=== PATIENT | male | born 1945 | race Caucasian/White ===

== ENCOUNTER → 2019-09-25 14:01 | Outpatient (CLI) | payer MEDICARE ==
--- NOTE | ~2019-09-25 | EC ---
PATIENT:BOUCHRA SOUSA DATE OF SERVICE: 09/25/19 SEX: M MEDICAL RECORD: [id number] DATE OF : 45 [facility] AGE OF PATIENT: 74 ADMISSION DATE: 09/25/19 REFERRING PHYSICIAN: INTERPRETING PHYSICIAN: TRACI SCHWARTZ MD ECHOCARDIOGRAM REPORT ECHO CHARGES 4 ECHO COMPLETE Date: 09/25/19 CLINICAL DIAGNOSIS: HEART MURMUR/DYPSNEA ECHOCARDIOGRAPHIC MEASUREMENTS (adult normal given) AC root (d.<3.7cm) 3.3 cm LV Septum d (<1.2 cm> 1.4 cm Valve Excursion 1.78 cm LV Septum (systole) 1.8 cm Left Atria (s.<4.0cm> 4.3 cm LVPW d(<1.2cm) 1.7 cm RV (d.<2.3cm) 5.2 cm LVPW (sytole) 1.8 cm LV diastole(<5.6CM) 6.0 cm MV E-F(>70mm/sec) cm LV systole 3.5 cm LVOT Diameter 2.0 cm MV exc.(>10mm) 1.8 cm Est.ejection fraction (50-75%) % DOPPLER: LVIT cm/sec A 114.0cm/sec E 76.0 cm/sec LA cm/sec RVSP 30 mmHg LVOT 127 cm/sec AOP1/2T m/s Asc. Ao 452 cm/sec RVOT 85 cm/sec RA cm/sec PA 135 cm/sec AV Gradient Peak 81.87mmHg AV Mean 45.08mmHg AV Area 0.9 cm MV Gradient Peak 5.30 mmHg MV Mean 2.23 mmHg MV Area cm COMMENTS: Director Of Strategic Initiatives: 2 ANGELA GOMEZ Middleware Solutions Architect: 3 Dr. Cabezas TAPE# PACS Pericardial Effusion N DATE OF SERVICE: Adequate 2D echo, color flow, spectral Doppler, and M-mode. LVH is present. LV internal dimensions are normal. Wall motion is normal. EF is greater than or equal to 55%. Aortic valve is calcified with restriction of leaflet motion. Peak gradient of 80 mmHg putting this in severe range. Left atrium is mildly dilated at 4.3 cm. Mitral valve shows no prolapse. Mild MR. Right-sided chambers are grossly normal. Mild TR. ECHOCARDIOGRAM REPORT [id number] BOUCHRA SOUSA TRANSINT:[id number] Voice Confirmation ID: [id number] DOCUMENT ID: [id number] TRACI SCHWARTZ MD CC: [id number] DICTATION DATE: 09/25/19 150 HEMODIALYSIS RN: 09/25/19 1759 [facility] [address] [id number]
--- NOTE | ~2019-09-25 | ST ---
PATIENT:BOUCHRA SOUSA MEDICAL RECORD: [id number] SEX: M LOCATION:[facility] ORDER #: ADMISSION DATE: 09/25/19 AGE OF PATIENT: 74 REFERRING PHYSICIAN: INTERPRETING PHYSICIAN: TRACI SCHWARTZ MD DATE OF SERVICE: 09/25/2019 PROCEDURE: Treadmill stress test. Exercised for 3 minutes 35 seconds on Kristian protocol. Maximum heart rate 145 beats per minute, greater than 85% maximum predicted. No ECG changes for ischemia. No symptoms of ischemia. Normal blood pressure response to exercise. Fair exercise tolerance. TRANSINT:[id number] Voice Confirmation ID: [id number] DOCUMENT ID: [id number] TRACI SCHWARTZ MD CC: [id number] DICTATION DATE: 09/26/19 1522 BRAKE LINING FINISHER: 09/27/19 0659 [facility] CLI 09/25/[id number] [place] [address]
== END | disposition home or self-care (01) ==
LOC: D.HCCECHO 14:01
PROVIDERS: ATTEND Internal Medicine Interventional Cardiology
DX: R06.09 Other forms of dyspnea (principal); R01.1 Cardiac murmur, unspecified

== ENCOUNTER 2019-12-05 05:59 | Day surgery (SDC) | payer MEDICARE ==
[~2019-12-05] VITALS: Ht 180.3 cm; Wt 113.9 kg
[~2019-12-05 05:59] MED LIST: ACCUPRIL40 MG PO; BAYER CHEWABLE81 MG PO; HYDROCHLOROTH12.5 M1 PO; HYDROCODON-ACE1 EA10 PO; NORVASC10 MG PO; PRAVACHOL40 MG PO; SINGULAIR10 MG PO
[2019-12-05 06:22] LABS: HEMOGLOBIN 15.6 g/dL (13.5-17.5); MCH 30.1 pg (26.0-34.0); MCHC 32.5 g/dL (31.0-37.0); MCV 92.5 fL (80.0-100.0); MEAN PLATELET VOLUME 9.3 fL (7.4-10.4); RBC 5.19 10x6/uL (4.20-6.10); RDW 13.2 % (11.5-14.5); WBC 6.5 10x3/uL (4.8-10.8)
[2019-12-05 06:37] LABS: CALCIUM 8.9 mg/dL (8.5-10.1); CARBON DIOXIDE 28.3 mmol/L (21.0-32.0); CREATININE - SERUM 1.1 mg/dL (0.6-1.3); POTASSIUM - SERUM 4.3 mmol/L (3.5-5.1)
[2019-12-05 07:08] VITALS: BP 146/87; Ht 180.3 cm; Wt 113.9 kg
[2019-12-05] MEDS ORDERED: ADVAIR 250-501 EAC1 INH (07:21)
--- NOTE | 2019-12-05 10:47 | NUR ---
1045-REC'D FROM RR. AWAKE AND ALERT.DENIES PAIN. VSS. REVIEWED DISCHARGE CRITERIA. VERBALIZED UNDERSTANDING. CL IN EASY REACH
--- NOTE | 2019-12-05 10:58 | OP ---
PATIENT NAME: BOUCHRA SOUSA MEDICAL RECORD: [id number] :45 LOCATION:[facility] ADMISSION DATE: SURGEON: LEVI SOLER MD DATE OF OPERATION: 12/05/2019 SURGEON: Levi Soler MD ANESTHESIA: General anesthesia by Willie Bello CRNA DIAGNOSIS: Right hydrocele. PROCEDURE: Right hydrocelectomy, Jaboulay procedure. SPECIMENS: Right hydrocele sac. ESTIMATED BLOOD LOSS: Minimal. CLINICAL HISTORY: This is a 74-year-old male whom I saw last year for a right hydrocele. At that time, it was large, but not causing any pain. In the meantime, it has become larger and now it was causing him quite a bit of discomfort. 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 When I examined him yesterday, there was also a slight left hydrocele. He gave consent for bilateral hydrocelectomy, although initially we had wanted to do just the right hydrocele. I will have to evaluate this at the time of the operation. HE IS ALLERGIC TO CODEINE. He was given ampicillin and sulbactam 3 grams IV tonger to the OR. DESCRIPTION OF PROCEDURE: The patient was given induction of general anesthesia in supine position. He was then prepped and draped. A midline incision was made on the median rhaphe of the scrotum. This extended for about 2.5 cm. There are large veins on the scrotal skin. We had to cauterize these. The dartos fascia was then incised using the Bovie. We then went down to the tunica vaginalis and drained a large quantity of fluid from the hydrocele. The testicle was then everted from the right hemiscrotum. The appendix, testis and appendix epididymis were removed using the Bovie. The excess tunica vaginalis, which constitutes the hydrocele sac was excised. This was done using the Bovie. The 2 flaps were then reapproximated posterior to the cord using running 4-0 Vicryl. Any bleeding that we encountered was immediately cauterized. The patient was aware that a hematoma formation was the biggest risk of the surgery. There was still venous bleeding from the dartos fascia and we meticulously cauterized these bleeding points. The dartos fascia was then reapproximated after we replaced the testicle into the hemiscrotum. The reapproximation of the dartos was done using running 4-0 Vicryl. Finally, the skin was reapproximated using simple interrupted 4-0 Monocryl. The wound was infiltrated with 1% lidocaine containing epinephrine. Fluffs and mesh panties were given. I will see the patient in followup in 2-4 weeks. TRANSINT:[id number] Voice Confirmation ID: [id number] DOCUMENT ID: [id number] OPERATIVE REPORT [id number] BOUCHRA SOUSA, LEVI Paul MD at 1058 CC: [id number] DICTATION DATE: 12/05/19 1027 [facility]: 12/05/19 [id number] [place] [address]
--- NOTE | 2019-12-05 11:18 | NUR ---
FULL LIQUID TRAY TO ROOM. IV PATENT AT KVO. VSS. REPORTS SLIGHT DISCOMFORT FROM SURGERY. 10/07. CL IN EASY REACH
--- NOTE | 2019-12-05 11:49 | NUR ---
1130-AMBULATED TO RESTROOM WITH SLOW STEADY GAIT. ABLE TO VOID WITHOUT COMPLICATIONS. REMOVED IV WITH CATH ITACT,DISPOSED INTO SHARPS.COVERED WITH GUAZE,SECURED WITH MEDIPORE TAPE.
--- NOTE | 2019-12-05 11:50 | NUR ---
1145-PT DRESSED. REVIEWED POST OPERATIVE INSTRUCTIONS AND FOLLOW UP APPOINTMENT. VERBALIZED UNDERSTANDING. ESCORTED OUT VIA W/C WITH SON AWAITING TO DRIVE HOME. VSS. DENIES PAIN.
== END 2019-12-05 11:45 | disposition home or self-care (01) ==
LOC: D.PAN 05:59 → D.OPS 09:00 → D.PAN 09:00
PROVIDERS: Anesthesiology; ATTEND Urology
DX: N43.3 Hydrocele, unspecified (principal); I10 Essential (primary) hypertension

== ENCOUNTER → 2020-01-22 12:28 | Outpatient (CLI) | payer MEDICARE ==
[2019-12-05 07:08] VITALS: BMI 35.0
[~2020-01-22 12:28] MED LIST changes: +ADVAIR 250-501 EAC1 INH
== END | disposition home or self-care (01) ==
LOC: D.US 12:28
PROVIDERS: ATTEND Urology
DX: N50.89 Other specified disorders of the male genital organs (principal)